=== PATIENT | female | born 1955 | race Caucasian/White ===

== ENCOUNTER 2023-05-29 11:22 | Outpatient (AMB) | payer OTHER, SELFPAY ==
--- NOTE | 2023-05-29 11:32 | A.OFFVIS_ITS ---
Intake VS Expanded 05/29/23 11:52 06/08/23 14:35 Height 5 ft 10 in 5 ft 10 in Weight 192 lb 3 oz 192 lb BMI 27.6 27.5 Intake Visit Reasons: DM, Hypertension & Lipid disorder/confirmed HPI Nutrition Presentation Details Pt presents for MNT for T2DM, lipid disorder and HTN. Pt was referred by Pt reports typical routine 7: 30 am B: coffee with creamer /bana na or bagel w cream cheese or peanut butter 2mcdouble, not fries/water chicken steak/pasta/veggies fish: not including fruits/day: 0-1/d vex/wk starches > 20 serivng/d fluids: water, coffee Takes various supplements on and off: coq, 2000 mg turmeric, bcomplex ETOH/SMoking:---- WMG-Lcagghd-Ak.Jeor Equation Height 5 ft 10 in Weight 192 lb Resting Metabolic Rate 1495.56 Calculated Activity Level Mild Activity Calories Needed to Maintain Weight 2056.40 Diagnosis Nutrition problem #1 food nutri know defi As related to (etiology) #1 diagnosis As evidenced by (sign/symptom) #1 knowledge deficit of diet Monitoring/Goals Nutrition problem monitoring level of knowledge/skill Nutrition goal/outcome list 3 diab diet goals Outcome progress verbalized understanding Learning/Education Readiness to learn good Stages of change preparation Educational materials provided Yes (meal planning) Most Recent Diabetes Results: No Data to Display Assessment & Plan Assessment & Plan (1) T2DM (type 2 diabetes mellitus): Code(s): E11.9 - Type 2 diabetes mellitus without complications Plan: wt 87 kg Est kcal needs as per MSJ: 2000 (40% carb, 30% protein/fat) Est fluid needs as per 25-30 ml/d: 2600 Est prot per day as per 1 g/kg bw: 87 Recommend fiber intake : 8-10 g per day and gradually increase to 25-28 g per day for women and 35-38 g for men or as tolerated Recommend sodium intake per day : less than 2000 mg Educated patient on: ( R = reviewed V = verbalizes understanding N/R = needs review N/A = not applicable * Food sources of carbohydrate, adequate serving sizes and its role in various health conditions: R * Differences between complex carbohydrates a simple carbohydrates, role of fiber in diet: R * Differences between types of fats and role in diet (mono on saturated fat fatty acids, saturated fatty acids, trans fats): R * Food sources of sodium in salt and healthy modifications for heart health in kidney health: R * Vitamins and minerals: R V * Healthy plate method concept: R V * Physical activity: Benefits a precaution: R * Hypoglycemia protocol (rule of 15): R * Dietary prevention of Hyperglycemia: R (2) HTN (hypertension): Code(s): I10 - Essential (primary) hypertension Plan: Work on reducing total carb at meal to 45-60g and snack 0-20 g carb as snack, limit to 2 a day Drink water with meals/snacks monitor blood glucose level (goal fasting blood sugar 80-130, 2 hours after a meal 80-180, unless otherwise specified by your doctor) Patient Instructions: Work on reducing carbs at bedtime to less than 30 g carb goal for blood sugar 2 hours after a meal (80-180) and fasting blood sugar (80- 130) Coding Level of Care Code Nutr Indiv Intake (56409) Diagnoses T2DM (type 2 diabetes mellitus) E11.9 HTN (hypertension) I10 Time Spent (min) 30
[2023-05-29 11:52] VITALS: BMI 27.6
[2023-06-08 14:35] VITALS: BMI 27.5
== END 2023-05-29 12:24 | disposition home or self-care (01) ==
PROVIDERS: PCP Physician Assistant; Visit Provider Dietitian, Registered
DX: E11.9 Type 2 diabetes mellitus without complications (principal); I10 Essential (primary) hypertension

== ENCOUNTER → 2023-05-29 11:22 | Outpatient (BNVA) | payer OTHER, SELFPAY | PROVIDERS: PCP Physician Assistant; Visit Provider Dietitian, Registered | DX: E11.9 Type 2 diabetes mellitus without complications (principal); E78.5 Hyperlipidemia, unspecified; I10 Essential (primary) hypertension; Z71.3 Dietary counseling and surveillance | CPT/HCPCS: 97802 ==